=== PATIENT | male | born 1990 | race American Indian/Alaskan Native ===

== ENCOUNTER 2022-06-17 20:19 | Emergency (ER) | payer MEDICAID ==
[~2022-06-17 20:19] MED LIST: Sodium Chloride 0.9% 1,000 ML ONE; Sodium Chloride 0.9% 50 ML ONE
[2022-06-17] MEDS ORDERED: EPINEPHrine 1:10,000 1 MG/10 ML Syringe IVPUSH ONE ×2 (22:22)
[2022-06-17] MEDS ORDERED: Tranexamic Acid 1,000 MG in Sodium Chloride 0.9% 100 ML IV ONE (22:23)
== END 2022-06-17 20:38 | disposition expired ==
LOC: CC.ED 20:19
DX: S01.83XA Puncture wound without foreign body of other part of head, initial encounter (principal); W33.01XA Accidental discharge of shotgun, initial encounter
CPT/HCPCS: 36415; 36430; 86850; 86900; 86901; 86920; 86922; 96374; 96375; 99285; 99285-25; J0171; J3490; J7050; P9016